=== PATIENT | male | born 1990 | race American Indian/Alaskan Native ===

== ENCOUNTER 2022-07-01 10:48 | Emergency (ER) | payer OTHER ==
[2022-07-01] MEDS ORDERED: IBUPROFEN 800 MG TAB PO ONE (11:42)
[2022-07-01] MEDS ORDERED: CYCLOBENZAPRINE 10 MG TAB PO ONE (11:43)
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
[2022-07-01] MEDS ORDERED: LIDOCAINE-MPF (1%) 10 MG/1 ML VIAL 5 ML INFILTRATI ONE (13:52)
[2022-07-01] MEDS ORDERED: AZITHROMYCIN 1 GM ORAL PWDR PACKET PO ONE (13:52)
[2022-07-01 14:56] VITALS: BP 116/78
[2022-07-01 16:04] LABS: Color,Urine Yellow (Yellow)
[2022-07-01 16:19] LABS: Hyaline Casts,Urine 1 /LPF; Mucus,Urine FEW /HPF
== END 2022-07-01 14:58 | disposition home or self-care (01) ==
LOC: ED 10:48
DX: M54.2 Cervicalgia (principal); M54.6 Pain in thoracic spine; L30.9 Dermatitis, unspecified; Z11.3 Encounter for screening for infections with a predominantly sexual mode of transmission; V87.7XXA Person injured in collision between other specified motor vehicles (traffic), initial encounter; Y93.89 Activity, other specified; Y92.488 Other paved roadways as the place of occurrence of the external cause; Y99.8 Other external cause status
CPT/HCPCS: 81001; 87086; 96372; 99283; J0696; J3490